=== PATIENT | female | born 1995 | race African-American/Black ===

== ENCOUNTER 2018-05-20 13:05 | Emergency (ER) | payer OTHER ==
[2018-05-20 13:47] LABS: Bilirubin Small (Negative); Blood, Urine Large (Negative); Clarity TURBID (Clear); Glucose, Urine (Dipstick) Negative (Negative); Leukocyte Moderate (Negative); Nitrite Positive (Negative); Protein, Urine (Dipstick) 300 mg/dL (Neg-Trace); Specific Gravity, Urine 1.029 (1.002-1.036)
[2018-05-20 13:49] LABS: Bacteria/HPF 1+ HPF (None Seen); RBC/HPF GREATER THAN 50-TNTC HPF (0-3); Squamous Epithelial 0-3 HPF (0-3)
[2018-05-20 13:59] LABS: Pathc Cast-AUWi Flag 4.35 (0-2.49); Pregnancy Test - Urine (BHCG) Negative (Negative); Pregu Control Background? CLEAR/WHITE (CLR/WHITE); Pregu Control Bar Appear? YES (CONTROL BAR); Specific Gravity 1.029 (1.002-1.036)
[2018-05-20 14:07] LABS: Hyaline Casts/LPF NONE SEEN LPF (0-3 Hyaline); Manual Microscopic Reviewed? No Path Casts Seen
== END 2018-05-20 14:30 | disposition home or self-care (01) ==
LOC: ERS 13:05
DX: N39.0 Urinary tract infection, site not specified (principal); F41.9 Anxiety disorder, unspecified
CPT/HCPCS: 81003; 81015; 81025; 87077; 87086; 87186; 99283

== ENCOUNTER 2025-06-21 04:03 | Emergency (ER) | payer OTHER ==
[2025-06-21] MEDS ORDERED: Acetaminophen 500 MG TAB ONE (05:45)
== END 2025-06-21 05:50 | disposition home or self-care (01) ==
LOC: ERS 04:03
DX: K04.7 Periapical abscess without sinus (principal); Z55.6 Problems related to health literacy
CPT/HCPCS: 99282